=== PATIENT | male | born 1985 | race Caucasian/White ===

== ENCOUNTER 2023-09-22 16:54 | Emergency (ER) | payer BC, SELFPAY ==
[2023-09-22 17:13] VITALS: BP 143/84; PULSE 65; RESP 18; TEMP 36.6; O2SAT 99
--- NOTE | 2023-09-22 17:21 | ED.URI ---
HPI - URI/Sore Throat General Chief Complaint: Upper Respiratory Infection Stated Complaint: sorethroat,cough Time Seen by Provider: 09/22/23 17:22 Source: patient Mode of arrival: ambulatory Limitations: no limitations History of Present Illness HPI Narrative: 38-year-old male presented for intermittent cough and sore throat over the past few weeks. Endorses a history of seasonal allergies but states ?it feels nothing like that. ? He states last night the throat pain made him feel as though he could not swallow his dinner. Denies nausea, vomiting, diarrhea, fevers or chills. Not taking anything for symptoms. Related Data Allergies Allergy/AdvReac Type Severity Reaction Status Date / Time No Known Drug Allergies Allergy Mild Verified 01/22/10 23:39 Review of Systems Review of Systems: CONSTITUTIONAL: Denies body aches, fever, chills, or sweats. EYES: Denies visual changes, redness, or discharge. ENT: Reports sore throat Denies rhinorrhea, congestion, or otalgia. CARDIOVASCULAR: Denies chest pain, palpitations, or edema. RESPIRATORY: Reports cough, denies sob, wheezing. GASTROINTESTINAL: Denies abdominal pain, nausea, vomiting, or diarrhea. GENITOURINARY: Denies dysuria or hematuria. SKIN: Denies rash, itching, or wounds. MUSCULOSKELETAL: Denies back pain, joint pain, or myalgia. NEUROLOGIC: Denies headache, numbness, tingling, or weakness. All systems reviewed & are unremarkable except as noted in HPI and below PMFSH Past Medical History Medical History (Updated 09/22/23 @ 17:30 by Karla Wellington, MARCELINA) No pertinent past medical history Comments At time of signature, I have reviewed and agree with nursing past medical, surgical, social and family history unless otherwise noted. Please see nursing chart for further information. There is no relevant family history pertinent to the presenting complaint Exam Narrative: GENERAL: Well-appearing, in no acute distress. EYES: EOMI. No redness or drainage. Conjunctivae normal. ENT: Mucous membranes pink and moist. No rhinorrhea. TMs normal bilaterally. Throat mildly erythematous, tonsils not enlarged. Uvula midline. NECK: Normal AROM. Supple. CHEST: No respiratory distress. Lungs clear to all corrales. HEART: Regular rate and rhythm. No murmur appreciated. ABDOMEN: Soft, nontender, nondistended, normal active bowel sounds. EXTREMITIES: Normal range of motion. No edema. SKIN: Warm, dry, no rash. Capillary refill normal. Normal skin turgor. NEURO: Alert and oriented x3. Gait steady. PSYCH: Normal affect. Course Course Emergency Course: Patient is aware of diagnosis, understands and agrees to treatment plan. Anticipatory guidance given. Patient agrees to follow-up as directed and is aware of reasons to seek care at the emergency department. Portions of this record may have been created with voice recognition software Level of Care: Express Care Visit Vital Signs Vital signs: Vital Signs Temperature 97.8 F 09/22/23 17:13 Pulse Rate 65 09/22/23 17:13 Respiratory Rate 18 09/22/23 17:13 Blood Pressure 143/84 H 09/22/23 17:13 Pulse Oximetry 99 09/22/23 17:13 Oxygen Delivery Room Air 09/22/23 17:13 Temperature 97.8 F 09/22/23 17:13 Pulse Rate 65 09/22/23 17:13 Respiratory Rate 18 09/22/23 17:13 Blood Pressure 143/84 H 09/22/23 17:13 Pulse Oximetry 99 09/22/23 17:13 Oxygen Delivery Room Air 09/22/23 17:13 MDM - URI/Sore Throat MDM Narrative Medical decision making narrative: Discussed physical exam findings c/w URI vs allergies. Advised management of seasonal allergies, though pt appeared resistant to this being source of symptoms. Advised supportive measures and signs/symptoms to go to the ER. Pt is appropriate for outpt treatment and f/u with pcp/ent. Differential Diagnosis Differential diagnosis: Likely upper respiratory infection, otitis media, sinusitis, viral infection and pharyngitis Di
== END 2023-09-22 17:38 | disposition home or self-care (01) ==
PROVIDERS: Emergency Provider Nurse Practitioner Family; PCP Family Medicine
DX: J06.9 Acute upper respiratory infection, unspecified (principal)
CPT/HCPCS: 99213; G0463